=== PATIENT | male | born 1995 | race Asian ===

== ENCOUNTER 2017-01-31 17:36 | Emergency (ER) | payer OTHER ==
[~2017-01-31] VITALS: Ht 177.8 cm; Wt 72.6 kg
[2017-01-31] MEDS ORDERED: KETOROLAC TROMETH 60MG/2ML VIAL IM ONE (19:00)
[2017-01-31] MEDS ORDERED: HYDROcodone-ACET 5/325MG TAB PO ONE (19:00)
[2017-01-31 19:06] VITALS: BP 131/95
== END 2017-01-31 20:06 | disposition home or self-care (01) ==
LOC: ER 17:46
DX: S33.5XXA Sprain of ligaments of lumbar spine, initial encounter (principal); X50.0XXA Overexertion from strenuous movement or load, initial encounter; Y93.89 Activity, other specified; Y99.0 Civilian activity done for income or pay; Y92.69 Other specified industrial and construction area as the place of occurrence of the external cause
CPT/HCPCS: 72100; 96372; 99284; J1885